=== PATIENT | female | born 1985 | race Caucasian/White ===

== ENCOUNTER 2021-11-18 19:50 | Emergency (ER) | payer OTHER, SELFPAY ==
[2021-11-18 20:23] VITALS: BP 132/87; PULSE 99; RESP 16; TEMP 36.3; O2SAT 100
--- NOTE | 2021-11-18 20:24 | ED.ABDPAIN ---
HPI - Abdominal Pain General Chief Complaint: Urogenital-Female Stated Complaint: Abdominal pain Time Seen by Provider: 11/18/21 20:24 Source: patient Mode of arrival: ambulatory Limitations: no limitations
[2021-11-18 20:37] LABS: Add Urine Microscopic? YES; Appearance Urine Clear (Clear); Bilirubin Urine Negative (Negative); Blood Urine 3+ (Negative); Color Urine Light Yellow (Yellow); Glucose Urine UA Negative (Negative); Ketones Urine Negative (Negative); Leukocyte Esterase Ur 1+ (Negative); Nitrate Urine Negative (Negative); Protein Urine 1+ (Negative); Specific Grav Ur 1.025 (1.010-1.020); Urobilinogen Urine 0.2 mg/dL (0.2-1.0); pH Urine 6.5 (5.0-8.0)
[2021-11-18] MEDS: ACETAMINOPHEN 500 MG TABLET 1000 MG PO (20:37)
--- NOTE | 2021-11-18 20:38 | ED.FEMALEGU ---
HPI - Female Genitourinary General Chief complaint: Urogenital-Female Stated complaint: Abdominal pain Time Seen by Provider: 11/18/21 20:24 Source: patient Mode of arrival: ambulatory Limitations: no limitations History of Present Illness HPI Narrative: Previously well 36-year-old woman comes in today complaining of pain with urination for the last 4 days. Patient states that she also has some vaginal discharge and urinary frequency. She has had no abdominal pain, nausea, vomiting, fever, diarrhea, or recent cough or cold symptoms. MD elicited complaint: dysuria and vaginal discharge Pertinent past history: IUD (ParaGard) Onset (ago): day(s) (4) Location of symptoms: urethra Severity: moderate Female Urogenital Radiation: Non-Radiating Quality of pain: sharp and burning Consistency: intermittent Vaginal discharge: white Vaginal bleeding: none Urinary symptoms: Dysuria and Frequency Exacerbating factors: urination Relieving factors: none Associated symptoms: denies other symptoms Treatment prior to arrival: none Patient : No Related Data Home Medications Medication Instructions Recorded Confirmed No Home Medications 11/18/21 11/18/21 Allergies Allergy/AdvReac Type Severity Reaction Status Date / Time cat dander Allergy Unknown Verified 11/18/21 20:29 oxaprozin [From Daypro] Allergy Unknown Verified 11/18/21 20:29 Review of Systems Review of Systems: All systems reviewed & are unremarkable except as noted in HPI and below Constitutional: Constitutional: Denies chills and Denies fatigue ENT: Denies nasal congestion and Denies sore throat Cardiovascular: Cardiovascular: Denies chest pain Respiratory: Respiratory: Denies cough and Denies dyspnea Gastrointestinal: Gastrointestinal: Denies abdominal pain, Denies diarrhea, Denies nausea and Denies vomiting Genitourinary: Genitourinary: Reports as per HPI, Denies hematuria, Reports nocturia, Reports dysuria and Reports vaginal discharge Musculoskeletal: Musculoskeletal: Denies back pain, Denies arthralgias and Denies joint swelling Integumentary/Breasts: Skin/Breast: Denies pruritus, Denies erythema and Denies rash Neurologic: Denies vertigo and Denies dizziness PMFSH Social History Social History (Updated 11/18/21 @ 20:42 by Vishnu Thomas MD) Smoking status: Current every day smoker Substance use type: methamphetamine Living arrangements: with family Exam Const: General: no acute distress and alert Orientation/consciousness: patient oriented x3 Resp: Effort & Inspection: normal respiratory effort and not labored Auscultation: clear to auscultation bilaterally, no rales, no rhonchi and no wheezes Cardio: Rate: regular rate Rhythm: regular rhythm GI: GI Palp: Yes Soft to palpation and No Tenderness to palpation present (GI) Skin: General skin exam: normal color, no jaundice and no pallor Rashes: no rashes Neuro: General: patient oriented x3, no focal motor deficits and CN's II-XI intact bilaterally Speech: normal speech Gait exam (Neuro): Normal gait present Extrem: General: normal to inspection and no clubbing, cyanosis or edema Psych: Appearance: grossly normal and well kempt Mental Status: mental status grossly normal Affect: normal affect Attitude: cooperative Thought content: Yes Normal thought content present Course Vital Signs Vital signs: Vital Signs Temperature 36.3 C L 11/18/21 20:23 Pulse Rate 99 11/18/21 20:23 Respiratory Rate 16 11/18/21 20:23 Blood Pressure 132/87 11/18/21 20:23 Pulse Oximetry 100 11/18/21 20:23 Temperature 36.3 C L 11/18/21 20:23 Pulse Rate 99 11/18/21 20:23 Respiratory Rate 16 11/18/21 20:23 Blood Pressure 132/87 11/18/21 20:23 Pulse Oximetry 100 11/18/21 20:23 MDM - Female Genitourinary Differential Diagnosis Differential diagnosis: Likely urinary tract infection, cervicitis and cystitis Lab Data Labs: Lab Results 11/18/21
[2021-11-18 20:46] LABS: Pregnancy On Board Control Positive; RBC Urine 51-75 /hpf (0-2); Squamous Epithelial Cell Urine Rare /hpf (Few); Urine Pregnancy Test Negative; WBC Urine 21-30 /hpf (0-3)
[2021-11-18 20:47] LABS: Bacteria Urine Trace /hpf; Mucus Urine Rare /lpf
[2021-11-18] MEDS: PHENAZOPYRIDINE HCL 100 MG TABLET 200 MG PO (20:55)
== END 2021-11-18 20:57 | disposition home or self-care (01) ==
PROVIDERS: Emergency Provider Emergency Medicine
DX: N89.8 Other specified noninflammatory disorders of vagina (principal); N30.00 Acute cystitis without hematuria
CPT/HCPCS: 81001; 81025; 87491; 87591; 99283; 99284; A9270